=== PATIENT | female | born 1995 | race African-American/Black ===

== ENCOUNTER 2017-02-27 23:23 | Emergency (ER) | payer SELFPAY ==
[~2017-02-27] VITALS: Ht 165.1 cm; Wt 56.5 kg
[2017-02-28 01:58] LABS: ADD UA MICROSCOPIC YES; APPEARANCE,URINE TURBID (CLEAR); GLUCOSE, URINE (UA) NEGATIVE (NEGATIVE); KETONES,URINE TRACE mg/dL (NEGATIVE); LEUKOCYTE ESTERASE ,URINE LARGE (NEGATIVE); OCCULT BLOOD,URINE LARGE (NEGATIVE); PROTEIN,URINE SEE CONFIRM (NEGATIVE)
[2017-02-28 02:22] LABS: SULFOSALICYLIC ACID,URINE 2+ (Negative)
[2017-02-28 02:23] LABS: RBC,URINE 51-100 /HPF (0-2); WBC,URINE 26-50 /HPF (0-5)
[2017-02-28 02:45] VITALS: BP 118/77
== END 2017-02-28 02:49 | disposition home or self-care (01) ==
LOC: EMS 23:24
DX: N39.0 Urinary tract infection, site not specified (principal); F17.210 Nicotine dependence, cigarettes, uncomplicated
CPT/HCPCS: 87086; 99284

== ENCOUNTER 2017-04-24 13:43 | Emergency (ER) | payer SELFPAY ==
[~2017-04-24] VITALS: Ht 165.1 cm; Wt 59.1 kg
[2017-04-24 14:35] VITALS: BP 109/78
== END 2017-04-24 15:05 | disposition home or self-care (01) ==
LOC: EMS 13:47
DX: J34.0 Abscess, furuncle and carbuncle of nose (principal); F17.210 Nicotine dependence, cigarettes, uncomplicated
CPT/HCPCS: 99283

== ENCOUNTER 2017-08-21 07:07 | Emergency (ER) | payer MEDICAID ==
[~2017-08-21] VITALS: Ht 165.1 cm; Wt 56.8 kg
[2017-08-21 11:00] VITALS: BP 115/72
[2017-08-21] MEDS ORDERED: BACITRACIN 0.9 GM PACKET OINTMENT TP ONE (11:00)
== END 2017-08-21 11:30 | disposition home or self-care (01) ==
LOC: EMS 07:08
DX: S91.204A Unspecified open wound of right lesser toe(s) with damage to nail, initial encounter (principal); W20.8XXA Other cause of strike by thrown, projected or falling object, initial encounter; Y93.89 Activity, other specified; Y92.89 Other specified places as the place of occurrence of the external cause; Y99.8 Other external cause status
CPT/HCPCS: 11730; 99284

== ENCOUNTER 2017-09-04 07:03 | Emergency (ER) | payer MEDICAID ==
[~2017-09-04] VITALS: Ht 165.1 cm; Wt 56.8 kg
[2017-09-04] MEDS ORDERED: PHENAZOPYRIDINE HCL 100 MG TABLET PO ONE (08:00)
[2017-09-04 08:04] LABS: GLUCOSE, URINE (UA) NEGATIVE (NEGATIVE); KETONES,URINE TRACE mg/dL (NEGATIVE); LEUKOCYTE ESTERASE ,URINE LARGE (NEGATIVE); NITRATE,URINE POSITIVE (NEGATIVE); OCCULT BLOOD,URINE LARGE (NEGATIVE); PROTEIN,URINE SEE CONFIRM (NEGATIVE)
[2017-09-04 08:06] LABS: APPEARANCE,URINE CLOUDY (CLEAR); BILIRUBIN,URINE PRELIM. POSITIVE (NEGATIVE)
[2017-09-04 08:13] LABS: SULFOSALICYLIC ACID,URINE Trace (Negative)
[2017-09-04 08:14] LABS: BACTERIA,URINE None Seen /HPF (None Seen); RBC,URINE >100 /HPF (0-2); SQUAMOUS EPITHELIAL CELL,UR Few /LPF (None Seen); WBC,URINE 26-50 /HPF (0-5)
[2017-09-04] MEDS ORDERED: SULFAMETHOX/TRIMETH DS 800-160 MG/TABLET PO ONE (08:15)
[2017-09-04 08:30] VITALS: BP 125/90
== END 2017-09-04 08:47 | disposition home or self-care (01) ==
LOC: EMS 07:04
DX: N30.91 Cystitis, unspecified with hematuria (principal); F17.210 Nicotine dependence, cigarettes, uncomplicated
CPT/HCPCS: 87086; 99284